=== PATIENT | female | born 1945 | race Caucasian/White ===

== ENCOUNTER 2016-07-25 18:31 | Emergency (ER) | payer OTHER ==
[~2016-07-25] VITALS: Ht 154.9 cm; Wt 63.5 kg
--- NOTE | 2016-07-25 18:50 | ED UPPER/LOWER EXTREMITY COMPL ---
History of Present Illness General Chief Complaint: Laceration Procedure Stated Complaint: CUT TO RIGHT INDEX FINGER Source: patient Exam Limitations: no limitations Vital Signs & Intake/Output Vital Signs & Intake/Output Vital Signs Date Time Temp Pulse Resp B/P Pulse O2 O2 Flow FiO2 Ox Delivery Rate 07/25 1943 98.2 70 18 128/63 96 07/25 1839 98.5 72 16 129/83 97 Allergies Coded Allergies: Penicillins (RASH 07/25/16) erythromycin base (DOUBLE OVER PER PT 07/25/16) Reconcile Medications Aspirin (Ecotrin*) 81 MG TABLET.DR 1 TAB PO DAILY HEART/BLOOD (Reported) Biotin (Unknown Strength) TABLET (Unknown Dose) PO DAILY SUPPLEMENT (Reported ) Calcium Citrate/Vitamin D3 (Citracal + D Maximum Caplet) (Unknown Strength) TABLET (Unknown Dose) PO DAILY SUPPLEMENT (Reported) Krill Oil (Unknown Strength) CAPSULE (Unknown Dose) PO DAILY SUPPLEMENT ( Reported) Levothyroxine Sodium 50 MCG TABLET 1 TAB PO DAILY THYROID (Reported) ZINC (Zinc Chelated) (Unknown Strength) TABLET (Unknown Dose) PO DAILY SUPPLEMENT (Reported) Triage Note: PT CUT HER POINTER FINGER RIGHT HAND THIS AM. PT UNSURE OF TETANUS SHOT. Triage Nurses Notes Reviewed? yes Onset: Abrupt Duration: constant Timing: single episode today Severity: mild Severity Numbers: 1 Pain/Injury Location: Right: 2nd finger. Method of Injury: laceration HPI: Patient is a 70-year-old female who presents emergency room stating that while cleaning around her still today she used her right hand to brush underneath the stove and actually hit the undercarriage metal runner resulting in a skin cut to the right second digit of her hands which she merely cleaned the wound site with peroxide. No nail involvement. Complaints of /10 pain tetanus status is unknown. (MIGUEL MONTOYA) Past History Travel History Traveled to [place] past 21 day No Medical History Any Pertinent Medical History? see below for history Endocrine: hypothyroidism History of MRSA: No History of VRE: No History of CDIFF: No Influenza Vaccine: 05/04/13 Surgical History Surgical History: non-contributory Psychosocial History Who do you live with Patient/Self Services at Home None What is your primary language Macedonian Tobacco Use: Never used ETOH Use: occasional use Illicit Drug Use: denies illicit drug use Family History Hx Contributory? No (MIGUEL MONTOYA) Review of Systems Review of Systems Constitutional: Reports: no symptoms. EENTM: Reports: no symptoms. Respiratory: Reports: no symptoms. Cardiovascular: Reports: no symptoms. Gastrointestinal/Abdominal: Reports: no symptoms. Genitourinary: Reports: no symptoms. Musculoskeletal: Reports: see HPI. Skin: Reports: see HPI. Neurological/Psychological: Reports: no symptoms. Hematologic/Endocrine: Reports: see HPI, bleeding. Immunological: Reports: no symptoms. All Other Systems: Reviewed and Negative (MIGUEL MONTOYA) Physical Exam Physical Exam General Appearance: no apparent distress, alert, comfortable Neurologic/Tendon: normal sensation, normal motor functions, normal tendon functions, responds to pain, no evidence tendon injury, no pulse deficit Skin: normal color, warm/dry Comments: Well-developed well-nourished no apparent distress. HEENT: Atraumatic, extraocular motion intact Neck: Supple, no lymphadenopathy Back: Nontender Respiratory: No respiratory distress Extremities: No edema, full range of motion Neuro: Alert and oriented x3 Psych: Mood affect normal, normal memory normal judgment. Diagram Hands Back 1) Superficial minimal skin flap noted in which margins are revised no active bleeding for active range of motion full resisted range of motion No nail involvement dermatomes intact No foreign body noted (MIGUEL MONTOYA) Progress Differential Diagnosis: arterial insufficiency, compartment syndrome, contusion, dislocation, DVT, fracture, gout, septic arthritis, sprain, tendon injury Plan of Care: The wound site of the right distal second digit of finger was irrigated with peroxide and water in which patient had no concerns of tendon deficit exposed bone exposed tendon or nail involvement. Margins were revised and which bacitracin and bandage was applied. At this time patient does not require Dermabond or suturing. Patient's tetanus was updated (MIGUEL MONTOYA) Departure Departure Disposition: HOME OR SELF CARE Condition: Stable Clinical Impression Primary Impression: Cut of finger Referrals: LUIS AGUSTIN,AKTHRYN Collins (PCP/Family) Additional Instructions: As discussed begin to apply bacitracin to the area once a day for the following 4 days. Change THE BANDAGES once a day and if you note signs of infection redness, pain, swelling, discharge return to emergency room. Follow-up with your primary care doctor Begin [id number] ibuprofen if needed for pain and inflammation. Departure Forms: Customer Survey General Discharge Information (MIGUEL MONTOYA) PA/DIRECTOR OF PROGRAMMING Co-Sign Statement Statement: ED Attending supervision documentation- [] I saw and evaluated the patient. I have also reviewed all the pertinent lab results and diagnostic results. I agree with the findings and the plan of care as documented in the PA's/DIRECTOR OF PROGRAMMING's documentation. [x] I have reviewed the ED Record and agree with the PA's/DIRECTOR OF PROGRAMMING's documentation. [] Additions or exceptions (if any) to the PAs/DIRECTOR OF PROGRAMMING's note and plan are summarized below: [] (MIGUE AGUSTIN,HEATHER Fabian)
[2016-07-25] MEDS ORDERED: LEVOTHYROXINE50 MCG PO (19:15)
[2016-07-25] MEDS ORDERED: ASPIRIN EC81 M1 PO (19:15)
[2016-07-25] MEDS ORDERED: CITRACAL + D M1 EACH PO (19:16)
[2016-07-25] MEDS ORDERED: KRILL OIL500 MG PO (19:16)
[2016-07-25] MEDS ORDERED: BIOTIN800 MCG PO (19:17)
[2016-07-25] MEDS ORDERED: ZINC CHELATED50 MG PO (19:17)
[2016-07-25 19:44] VITALS: BP 128/63
== END 2016-07-25 19:45 ==
LOC: ERH 18:31
DX: S61.210A Laceration without foreign body of right index finger without damage to nail, initial encounter (principal); W45.8XXA Other foreign body or object entering through skin, initial encounter
CPT/HCPCS: 90471; 90714